=== PATIENT | male | born 1990 | race Caucasian/White ===

== ENCOUNTER 2018-06-22 13:55 | Emergency (ER) | payer SELFPAY ==
[2018-06-22 14:20] VITALS: BP 134/81; PULSE 68; RESP 12; TEMP 36.7; O2SAT 97; BMI 22.8
[2018-06-22] MEDS: ONDANSETRON 4 MG/2 ML INJ IV (15:04)
[2018-06-22] MEDS: SODIUM CHLORIDE 0.9% 1,000 ML 1000 ML IV ×2 (15:04→16:06)
[2018-06-22 15:05] LABS: Add Manual Diff / Slide Review NO; Basophils Percent Auto 0.6 % (0-2); Eosinophils Percent Auto 0.2 % (2-4); Hematocrit 41.3 % (41-53); Hemoglobin 14.2 g/dL (13.5-17.5); Lymphocytes Percent Auto 24.7 % (25-40); Mean Corpuscular HGB Conc 34.4 % (30-36); Mean Corpuscular Hemoglobin 34.5 PG (26-34); Mean Corpuscular Volume 100.4 fL (80-100); Monocytes Percent Auto 7.6 % (3-14); Neutrophils Absolute Auto 3500 /uL (1500-7000); Neutrophils Percent Auto 66.9 % (50-75); Platelet Count 215 X10^3/uL (150-400); Red Blood Cell Count 4.12 X10^6/uL (4.5-5.9); Red Cell Distribution Width 12.4 % (11.6-14.8); White Blood Cell Count 5.3 X10^3/uL (4.5-11.0)
[2018-06-22 15:12] VITALS: BP 136/78; PULSE 62; RESP 18; O2SAT 97
[2018-06-22 15:19] LABS: INR 0.9 (0.9-1.3); Prothrombin Time 10.6 SECONDS (10.1-12.7)
[2018-06-22 15:22] LABS: Alanine Aminotransferase 33 IU/L (21-72); Albumin 4.8 g/dL (3.5-5.0); Albumin Globulin Ratio 1.4 (1.0-2.8); Alkaline Phosphatase 75 U/L (38-126); Aspartate Aminotransferase 48 IU/L (17-59); BUN Creatinine Ratio 14.4 (6-22); Blood Urea Nitrogen 13 mg/dL (9-20); Calcium 9.7 mg/dL (8.4-10.2); Carbon Dioxide 25 mmol/L (22-32); Chloride 98 mmol/L (98-107); Estimated Glomerular Filt Rate > 60.0 mL/min (>60); Ethanol (ETOH) < 10 mg/dL; Globulin 3.4 g/dL (1.7-4.1); Glucose 75 mg/dL (70-100); HEMOLYSIS < 15 (0-50); Lipase 70 U/L (23-300); PTT Partial Thromboplastin Tim 28 SECONDS (26.4-36.2); Sodium 136 mmol/L (137-145); Total Protein 8.2 g/dL (6.3-8.2)
[2018-06-22 15:35] VITALS: BP 134/78; PULSE 69; RESP 16; TEMP 37; O2SAT 96
--- NOTE | 2018-06-22 15:36 | ED_ITS ---
HPI - Abdominal Pain <CARLINE Up Last Filed: 06/22/18 21:48> General Chief Complaint: Abdominal Pain Stated Complaint: ?PANCREATIS Time Seen by Provider: 06/22/18 15:44 Source: patient Mode of arrival: ambulatory Limitations: no limitations History of Present Illness HPI narrative: This generally healthy 28 year-old male comes in due to 2 day history of abdominal pain, which he is noticing more on the left lower area. He states that he had a hard time staying asleep 2 nights ago due to this when it began. He states that it is constant, but worse with moving around, somewhat better at rest or sitting curled up or with his abdomen flexed. He has had some nausea with this but no vomiting. He states he has been able to eat soup and states he also had 10 beers between 9:00 a.m. yesterday and 2:00 a.m. this morning thinking that this might be helpful. He states that he also drinks a lot of coffee. He states that he has had loose stools yesterday, but no diarrhea today. No blood in the stools. He has not had any urinary symptoms. He has not had any recent upper respiratory symptoms, no chest pain, dyspnea, pain or swelling in the extremities. He states that he used to drink a lot previously but generally now has somewhere between 0-3 drinks daily and yesterday was an outlier. Patient states that he has had similar symptoms in the past with some diarrhea but typically resolves on its own. He has never sought medical evaluation, does not have a PCP. He states that he does not feel that alcohol is a problem for him any longer nor does he feel like he needs help with alcohol abuse Related Data Home Medications Medication Instructions Recorded Confirmed No Known Home Medications 06/22/18 06/22/18 Allergies Allergy/AdvReac Type Severity Reaction Status Date / Time No Known Allergies Allergy Verified 06/22/18 14:26 Review of Systems <CARLINE Up Last Filed: 06/22/18 21:48> Review of Systems All systems reviewed & are unremarkable except as noted in HPI and below PFSH <CARLINE Up Last Filed: 06/22/18 21:48> Comment: Previous heavy EtOH use, +THC Exam <CARLINE Up Filed: 06/22/18 21:48> Narrative Exam Narrative: GENERAL APPEARANCE: Patient sitting comfortably, in no distress. HEENT: PERRL, EOMI, no scleral icterus NECK: Supple LUNGS: Clear to auscultation bilaterally. HEART: Rate and rhythm regular, normal S1 and S2, no S3 or S4. ABDOMEN: Soft, nondistended, bowel sounds present x 4 quadrants, no masses palpable, no hepatosplenomegaly. Left lower quadrant is tender to palpation without guarding or rebound. Mild tenderness elsewhere over the left side. EXTREMITIES: No edema, no calf tenderness DERMATOLOGIC: No jaundice or exanthem NEUROLOGIC: Alert and oriented with normal speech and coordination Initial Vital Signs Initial Vital Signs: Vital Signs Temperature 98.1 F 06/22/18 14:20 Pulse Rate 68 06/22/18 14:20 Respiratory Rate 12 06/22/18 14:20 Blood Pressure 134/81 06/22/18 14:20 Pulse Oximetry 97 06/22/18 14:20 <Soniya Orona DO - Last Filed: 06/23/18 19:03> Initial Vital Signs Initial Vital Signs: Vital Signs Temperature 98.1 F 06/22/18 14:20 Pulse Rate 68 06/22/18 14:20 Respiratory Rate 12 06/22/18 14:20 Blood Pressure 134/81 06/22/18 14:20 Pulse Oximetry 97 06/22/18 14:20 Course <Karina Edward PA-C - Last Filed: 06/22/18 21:48> Additional Information: Patient reported feeling markedly improved prior to discharge. Pain largely resolved, nausea resolved, and had not had any further diarrhea. No acute findings on CT or lab work. We discussed dietary measures and reasons for which he would need to return to ED, and he is agreeable. He states he already has paperwork on enrolling in insurance and did not feel like he needed any resources for alcohol overuse Orders Ordered: Discontinued Medications Sodium Chloride (Normal Saline 0.9%) 1,000 mls @ 1,000 mls/hr IV BOLUS ONE Stop: 06/22/18 15:52 Last Infusion: 06/22/18 16:06 Dose: 0 mls/hr Admin: 06/22/18 15:04 Dose: 1,000 mls/hr Sodium Chloride (Normal Saline 0.9%) 1,000 mls @ 1,000 mls/hr IV BOLUS ONE Stop: 06/22/18 17:00 Last Infusion: 06/22/18 17:55 Dose: 0 mls/hr Admin: 06/22/18 16:06 Dose: 1,000 mls/hr Ketorolac Tromethamine (Toradol) 30 mg IV NOW ONE Stop: 06/22/18 16:02 Last Admin: 06/22/18 16:06 Dose: 30 mg Ondansetron HCl (Zofran) 4 mg IV NOW ONE Stop: 06/22/18 14:30 Last Admin: 06/22/18 15:04 Dose: 4 mg Pantoprazole Sodium (Protonix) 40 mg IV NOW ONE Stop: 06/22/18 16:02 Last Admin: 06/22/18 16:06 Dose: 40 mg Vital Signs - 8 hr 06/22/18 14:20 06/22/18 15:12 06/22/18 15:35 Temperature 98.1 F 98.6 F Pulse Rate 68 62 69 Respiratory Rate 12 18 16 Blood Pressure 134/81 Blood Pressure [Left Arm] 136/78 134/78 Pulse Oximetry 97 97 96 06/22/18 16:27 06/22/18 17:15 Temperature Pulse Rate 64 65 Respiratory Rate 15 18 Blood Pressure Blood Pressure [Left Arm] 133/66 122/67 Pulse Oximetry 96 97 <Soniya Orona DO - Last Filed: 06/23/18 19:03> Orders Ordered: Discontinued Medications Sodium Chloride (Normal Saline 0.9%) 1,000 mls @ 1,000 mls/hr IV BOLUS ONE Stop: 06/22/18 15:52 Last Infusion: 06/22/18 16:06 Dose: 0 mls/hr Admin: 06/22/18 15:04 Dose: 1,000 mls/hr Sodium Chloride (Normal Saline 0.9%) 1,000 mls @ 1,000 mls/hr IV BOLUS ONE Stop: 06/22/18 17:00 Last Infusion: 06/22/18 17:55 Dose: 0 mls/hr Admin: 06/22/18 16:06 Dose: 1,000 mls/hr Ketorolac Tromethamine (Toradol) 30 mg IV NOW ONE Stop: 06/22/18 16:02 Last Admin: 06/22/18 16:06 Dose: 30 mg Ondansetron HCl (Zofran) 4 mg IV NOW ONE Stop: 06/22/18 14:30 Last Admin: 06/22/18 15:04 Dose: 4 mg Pantoprazole Sodium (Protonix) 40 mg IV NOW ONE Stop: 06/22/18 16:02 Last Admin: 06/22/18 16:06 Dose: 40 mg Vital Signs - 8 hr 06/22/18 14:20 06/22/18 15:12 06/22/18 15:35 Temperature 98.1 F 98.6 F Pulse Rate 68 62 69 Respiratory Rate 12 18 16 Blood Pressure 134/81 Blood Pressure [Left Arm] 136/78 134/78 Pulse Oximetry 97 97 96 06/22/18 16:27 06/22/18 17:15 Temperature Pulse Rate 64 65 Respiratory Rate 15 18 Blood Pressure Blood Pressure [Left Arm] 133/66 122/67 Pulse Oximetry 96 97 MDM - Abdominal Pain <Karina Edward PA-C - Last Filed: 06/22/18 21:48> Lab Data Result diagrams: 06/22/18 14:54 06/22/18 14:54 Lab Results 06/22/18 06/22/18 06/22/18 Range/Units 14:54 14:54 14:54 WBC 5.3 (4.5-11.0) X10^3/uL RBC 4.12 L (4.5-5.9) X10^6/uL Hgb 14.2 (13.5-17.5) g/dL Hct 41.3 (41-53) % MCV 100.4 H (80-100) fL MCH 34.5 H (26-34) PG MCHC 34.4 (30-36) % RDW 12.4 (11.6-14.8) % Plt Count 215 (150-400) X10^3/uL Neut % (Auto) 66.9 (50-75) % Lymph % (Auto) 24.7 L (25-40) % Mcdonough % (Auto) 7.6 (3-14) % Eos % (Auto) 0.2 L (2-4) % Baso % (Auto) 0.6 (0-2) % Neut # (Auto) 3500 (6513-4573) /uL PT 10.6 (10.1-12.7) SECONDS INR 0.9 (0.9-1.3) APTT 28 (26.4-36.2) SECONDS Sodium 136 L (137-145) mmol/L Potassium 4.0 (3.4-5.1) mmol/L Chloride 98 (98-107) mmol/L Carbon Dioxide 25 (22-32) mmol/L BUN 13 (9-20) mg/dL Creatinine 0.90 (0.66-1.25) mg/dL Estimated GFR > 60.0 (>60) mL/min BUN/Creatinine Ratio 14.4 (6-22) Glucose 75 (70-100) mg/dL Calcium 9.7 (8.4-10.2) mg/dL Total Bilirubin 1.0 (0.2-1.3) mg/dL AST 48 (17-59) IU/L ALT 33 (21-72) IU/L Alkaline Phosphatase 75 (38-126) U/L Total Protein 8.2 (6.3-8.2) g/dL Albumin 4.8 (3.5-5.0) g/dL Globulin 3.4 (1.7-4.1) g/dL Albumin/Globulin Ratio 1.4 (1.0-2.8) Lipase 70 (23-300) U/L Ethyl Alcohol < 10 mg/dL 06/22/18 Range/Units 14:54 WBC (4.5-11.0) X10^3/uL RBC (4.5-5.9) X10^6/uL Hgb (13.5-17.5) g/dL Hct (41-53) % MCV (80-100) fL MCH (26-34) PG MCHC (30-36) % RDW (11.6-14.8) % Plt Count (150-400) X10^3/uL Neut % (Auto) (50-75) % Lymph % (Auto) (25-40) % Mcdonough % (Auto) (3-14) % Eos % (Auto) (2-4) % Baso % (Auto) (0-2) % Neut # (Auto) (5150-8251) /uL PT (10.1-12.7) SECONDS INR (0.9-1.3) APTT (26.4-36.2) SECONDS Sodium (137-145) mmol/L Potassium (3.4-5.1) mmol/L Chloride (98-107) mmol/L Carbon Dioxide (22-32) mmol/L BUN (9-20) mg/dL Creatinine (0.66-1.25) mg/dL Estimated GFR (>60) mL/min BUN/Creatinine Ratio (6-22) Glucose (70-100) mg/dL Calcium (8.4-10.2) mg/dL Total Bilirubin (0.2-1.3) mg/dL AST (17-59) IU/L ALT (21-72) IU/L Alkaline Phosphatase (38-126) U/L Total Protein (6.3-8.2) g/dL Albumin (3.5-5.0) g/dL Globulin (1.7-4.1) g/dL Albumin/Globulin Ratio (1.0-2.8) Lipase (23-300) U/L Ethyl Alcohol Cancelled mg/dL Point of care testing: Urine Dip Bedside Urine Glucose Negative Bedside Urine Bilirubin - Negative Bedside Urine Ketone + 15 Urine Specific [place] 1.025 Bedside Urine Occult Blood - Negative Bedside Urine pH 6.0 Bedside Urine Protein - Negative Bedside Urine Urobilinogen - Negative Bedside Urine Nitrite - Negative Bedside Urine Leukocytes - Negative Esterase <Soniya Orona, DO - Last Filed: 06/23/18 19:03> Lab Data Lab Results 06/22/18 06/22/18 06/22/18 Range/Units 14:54 14:54 14:54 WBC 5.3 (4.5-11.0) X10^3/uL RBC 4.12 L (4.5-5.9) X10^6/uL Hgb 14.2 (13.5-17.5) g/dL Hct 41.3 (41-53) % MCV 100.4 H (80-100) fL MCH 34.5 H (26-34) PG MCHC 34.4 (30-36) % RDW 12.4 (11.6-14.8) % Plt Count 215 (150-400) X10^3/uL Neut % (Auto) 66.9 (50-75) % Lymph % (Auto) 24.7 L (25-40) % Mcdonough % (Auto) 7.6 (3-14) % Eos % (Auto) 0.2 L (2-4) % Baso % (Auto) 0.6 (0-2) % Neut # (Auto) 3500 (7653-6035) /uL PT 10.6 (10.1-12.7) SECONDS INR 0.9 (0.9-1.3) APTT 28 (26.4-36.2) SECONDS Sodium 136 L (137-145) mmol/L Potassium 4.0 (3.4-5.1) mmol/L Chloride 98 (98-107) mmol/L Carbon Dioxide 25 (22-32) mmol/L BUN 13 (9-20) mg/dL Creatinine 0.90 (0.66-1.25) mg/dL Estimated GFR > 60.0 (>60) mL/min BUN/Creatinine Ratio 14.4 (6-22) Glucose 75 (70-100) mg/dL Calcium 9.7 (8.4-10.2) mg/dL Total Bilirubin 1.0 (0.2-1.3) mg/dL AST 48 (17-59) IU/L ALT 33 (21-72) IU/L Alkaline Phosphatase 75 (38-126) U/L Total Protein 8.2 (6.3-8.2) g/dL Albumin 4.8 (3.5-5.0) g/dL Globulin 3.4 (1.7-4.1) g/dL Albumin/Globulin Ratio 1.4 (1.0-2.8) Lipase 70 (23-300) U/L Ethyl Alcohol < 10 mg/dL 06/22/18 Range/Units 14:54 WBC (4.5-11.0) X10^3/uL RBC (4.5-5.9) X10^6/uL Hgb (13.5-17.5) g/dL Hct (41-53) % MCV (80-100) fL MCH (26-34) PG MCHC (30-36) % RDW (11.6-14.8) % Plt Count (150-400) X10^3/uL Neut % (Auto) (50-75) % Lymph % (Auto) (25-40) % Mcdonough % (Auto) (3-14) % Eos % (Auto) (2-4) % Baso % (Auto) (0-2) % Neut # (Auto) (1467-9779) /uL PT (10.1-12.7) SECONDS INR (0.9-1.3) APTT (26.4-36.2) SECONDS Sodium (137-145) mmol/L Potassium (3.4-5.1) mmol/L Chloride (98-107) mmol/L Carbon Dioxide (22-32) mmol/L BUN (9-20) mg/dL Creatinine (0.66-1.25) mg/dL Estimated GFR (>60) mL/min BUN/Creatinine Ratio (6-22) Glucose (70-100) mg/dL Calcium (8.4-10.2) mg/dL Total Bilirubin (0.2-1.3) mg/dL AST (17-59) IU/L ALT (21-72) IU/L Alkaline Phosphatase (38-126) U/L Total Protein (6.3-8.2) g/dL Albumin (3.5-5.0) g/dL Globulin (1.7-4.1) g/dL Albumin/Globulin Ratio (1.0-2.8) Lipase (23-300) U/L Ethyl Alcohol Cancelled mg/dL Point of care testing: Urine Dip Bedside Urine Glucose Negative Bedside Urine Bilirubin - Negative Bedside Urine Ketone + 15 Urine Specific [place] 1.025 Bedside Urine Occult Blood - Negative Bedside Urine pH 6.0 Bedside Urine Protein - Negative Bedside Urine Urobilinogen - Negative Bedside Urine Nitrite - Negative Bedside Urine Leukocytes - Negative Esterase Discharge Plan Departure Patient Disposition: Home Clinical Impression: Acute left lower quadrant pain, Nausea Discharge Date/Time: 06/22/18 17:57 Interventions: ED Discharge Assessment Last Done: 06/22/18 17:56 Instructions: DI for Abdominal Pain-Adult, DI for Nausea -- Adult Activity Restrictions/Additional Instructions: Please return as we talked about if you have any acutely worsening symptoms, or new symptoms such as protracted vomiting or fever. The source of your pain is not clear today, there were no acute problems found on your lab work or CT scan. Since you are feeling substantially better, you can return home. Please drink plenty of clear fluids and eat a very bland diet, i.e. what we call the brat diet with bananas, white rice, applesauce, Tea, white toast, and clear broth for the next couple of days. You can gradually return to your usual diet if you are feeling better. Please start taking [id number] Pepcid ( famotidine) 20 mg daily, to help with stomach upset Prescriptions: No Action No Known Home Medications RF: 0 <Soniya Orona DO - Last Filed: 06/23/18 19:03> Cosign ED Attending Cosignature Attestation: I was immediately available in the department for consultation. This documentation has been reviewed and I agree with assessment and plan. Supervised by Soniya Orona DO
--- NOTE | 2018-06-22 16:01 | DI.CT.S_ITS ---
PROCEDURE: CT ABDOMEN PELVIS W CON INDICATIONS: pain, mainly LLQ TECHNIQUE: After the administration of oral and intravenous contrast, 5 mm thick sections acquired from the diaphragms to the symphysis. 5 mm thick coronal and sagittal reformats were performed. For radiation dose reduction, the following was used: automated exposure control, adjustment of mA and/or kV according to patient size. COMPARISON: None. FINDINGS: Image quality: Excellent. ABDOMEN: Lung bases: Lung bases are clear. Heart size is normal. Solid organs: Liver is normal in size and enhancement. Gallbladder is unremarkable. Biliary system is non-dilated. Pancreas enhances normally. Spleen is normal in size and enhancement. No adrenal nodules. Kidneys are normal in size and enhancement, without hydronephrosis. Peritoneum and bowel: Stomach, small bowel, and colon loops are normal in caliber and wall thickness. The appendix is thin walled and gas filled. No free fluid or air. Nodes and vessels: No retroperitoneal or mesenteric adenopathy. Aorta and inferior vena cava are normal in caliber. Miscellaneous: No ventral hernias. PELVIS: Genitourinary: Bladder wall thickness is normal. Miscellaneous: No inguinal hernias or adenopathy. Bones: No suspicious bony lesions. No vertebral body compression fractures. IMPRESSION: 1. No acute intra-abdominal findings. Normal appendix. 2. No findings to explain left lower quadrant pain. Dictated by: Celeste Curtis M.D. on 06/22/2018 at 16:58 Approved by: Celeste Curtis M.D. on 06/22/2018 at 17:01
[2018-06-22] MEDS: PANTOPRAZOLE 40 MG VIAL IV (16:06)
[2018-06-22] MEDS: KETOROLAC 60 MG/2 ML VIAL 30 MG IV (16:06)
[2018-06-22 16:27] VITALS: BP 133/66; PULSE 64; RESP 15; O2SAT 96
[2018-06-22 17:15] VITALS: BP 122/67; PULSE 65; RESP 18; O2SAT 97
== END 2018-06-22 17:57 | disposition home or self-care (01) ==
PROVIDERS: Emergency Medicine; Emergency Provider Internal Medicine
DX: R10.31 Right lower quadrant pain (principal); R11.0 Nausea
CPT/HCPCS: 36591; 74177; 80053; 80320; 81003; 83690; 85025; 85610; 85730; 96361; 96374; 96375; 99283; 99285; C9113; J1885; J2405; Q9967